=== PATIENT | male | born 1940 | race Caucasian/White ===

== ENCOUNTER 2024-11-18 10:48 | Emergency (ER) | payer BC, MEDICARE, SELFPAY ==
[2024-11-18 11:06] VITALS: BP 162/76
[2024-11-18 11:36] LABS: Hematocrit 44.8 % (39.0-52.0); Hemoglobin 15.1 g/dL (13.0-18.0); Mean Corp Hgb Conc. 33.7 g/dL (33.0-37.0); Mean Corpuscular Volume 93.7 fL (80.0-94.0); Nucleated Red Blood Cells % 0 % (-); Platelet Count 328 10^3/uL (130-400); Red Cell Dist. Width 14.6 % (11.5-14.5)
[2024-11-18 11:53] LABS: ALT (SGPT) 21 U/L (0-50); AST (SGOT) 27 U/L (17-59); Albumin 5.1 g/dl (3.5-5.0); Alkaline Phosphatase 36 U/L (38-126); Blood Urea Nitrogen 38 mg/dl (9-20); Calcium 10.1 mg/dl (8.4-10.2); Carbon Dioxide 20 mmol/L (22-30); Chloride 109 mmol/L (98-107); Glucose 125 mg/dl (70-99); Lipase 112 U/L (23-300); Potassium 4.6 mmol/L (3.5-5.1); Sodium 141 mmol/L (135-145); Total Protein 8.0 g/dl (6.3-8.2); eGFR > 60.00
[2024-11-18 12:15] LABS: Urine Character Clear (Clear)
[2024-11-18 12:34] LABS: Urine Red Blood Cell 0-2 /HPF (0-2); Urine Squamous Cell 0-2 /LPF (Few); Urine White Cell 0-2 /HPF (0-5)
--- NOTE | 2024-11-18 13:24 | ED.GENMED ---
History of Present Illness
General
Chief Complaint: Back Pain
Source: patient and spouse
Exam Limitations: none
Time Seen by Provider: 11/18/24 13:06
Nursing documentation reviewed up to this point in time: agreed with
History of Present Illness
History of Present Illness:
84-year-old male left flank pain onset Monday evening he was doing yard work Monday in the morning doing some heavy lifting pain was worse at night, used some Aleve without much relief, somewhat reminiscent of his prior pancreatitis, said no dysuria
no frequency no vomiting no abdominal pain no hematuria no fevers, pains worse when he moves better at rest has had back surgery previously had an epidural steroid injection a few months ago with some relief of his symptoms
Past History
Past History
ED Past Medical History: HTN and Hypercholesterolemia
ED Past Surgical History: Brain, Orthopedic (Back surgery) and Tonsilectomy
Social History
Tobacco: Non-smoker
Alcohol: None
Drug: None
Personal:
Living: with family
Employment: Retired
Review of Systems
Review of Systems
All Other Systems: Not applicable
Constitutional: Denies fever or fatigue
Cardiac: Reports no symptoms
ABD/GI: Denies abdominal pain or nausea
: Reports flank pain; Denies dysuria, frequency, incontinence or bleeding
Musculoskeletal: Reports back pain
Hematologic/Lymphatic: Reports no symptoms
Phy Exam
Physical Exam
Physical Exam:
Physical Exam
General: no apparent distress, not acutely ill
Neck: No jaundice
Heart: s1/s2 regular rate and rhythm, no murmur. equal radial pulses.
Lungs: no acute respiratory distress. clear bilaterally
Abdomen: Nontender
Neuro: alert and oriented. no focal neurological deficits negative straight leg raise bilaterally
Skin: no rash
Psychiatric: cooperative
Extremities: no edema.
Course
Orders/Labs/Results
Orders:
Orders
11/18/24 11:17
Complete Blood Count/With Diff Urgent
Comprehensive Metabolic Panel Urgent
Lipase Urgent
11/18/24 12:04
Urinalysis Reflex To Culture Urgent
Date Specimen was Collected: 11/18/24
Time Specimen was Collected: 11:09
Urine Microscopic Reflex Cult Urgent
11/18/24 13:21
Acetaminophen [Tylenol] 650 mg PO NOW STA
Prednisone [Deltasone] 40 mg PO NOW STA
11/18/24 13:52
Lumbar Spine, 2 or 3 View [CR Lumbar Spine 2 Or 3 Views] Urgent
Comment:
Reason For Exam: PAIN
Abnormal Lab Results
11/18/24 11/18/24
11:17 12:04
MCH 31.6 H pg
(27.0-31.0)
RDW 14.6 H %
(11.5-14.5)
Absolute Monos (auto) 0.9 H 10^3/uL
(0.1-0.6)
Monocytes % 11.9 H %
(1.7-9.3)
Chloride 109 H mmol/L
(98-107)
Carbon Dioxide 20 L mmol/L
(22-30)
BUN 38 H mg/dl
(9-20)
Glucose 125 H mg/dl
(70-99)
Alkaline Phosphatase 36 L U/L
(38-126)
Albumin 5.1 H g/dl
(3.5-5.0)
Urine Albumin (Reflex) 1+ A
(Neg - Trace)
11/18/24 11:17
11/18/24 11:17
Vital Signs
Initial and Last Documented VS:
Initial Vital Signs
Temp Pulse Resp BP Pulse Ox
99.3 F 64 16 162/76 96
11/18/24 11:06 11/18/24 11:06 11/18/24 11:06 11/18/24 11:06 11/18/24 11:06
Last Documented Vital Signs
Temp Pulse Resp BP Pulse Ox
99.3 F 64 16 162/76 96
11/18/24 11:06 11/18/24 11:06 11/18/24 11:06 11/18/24 11:06 11/18/24 13:26
MDM/Problems Addressed
Differential Diagnosis Includes:
Strain UTI stone doubt pancreatitis doubt AAA discitis epidural abscess
MDM/Problems Addressed:
Back pain
Chronic conditions affecting care:
Chronic back pain
Acute Exacerbation and/or Progression of Chronic Illness:
Chronic back pain pancreatitis
*Radiology
Radiology exam reviewed: preliminary read by ED provider (LAURIE scoliosis no fracture)
*Pulse Oximetry
SaO2: 96
Oxygen Mode of Delivery: Room air
Patient hypoxic: no
*Critical Care Note
Total Time (30-74mins, 75-104mins- exclusive of procedures): Not Applicable
Update Note
Update Note:
1:30 PM update symptoms worse with movement started after doing yard work normal lipase, urine noted
Patient hesitant to take any narcotics, will give him a short course of steroids consider muscle relaxants
ED Attending Note
-
Portions of this chart may have been created with voice recognition software.� Occasional wrong word or��sound alike� substitutions may have occurred due to the inherent limitations of voice recognition software.
Discharge Plan
Departure
Patient Disposition: Home (Routine Discharge)
Date of Disposition: 11/18/24
Time of Disposition: 13:29
Patient with high blood pressure during this ER visit?: No
Condition: Good
Discharge Problem:
Back pain, Muscle strain
Instructions: Low Back Pain (DC), Radiculopathy (DC)
Prescriptions:
New
cyclobenzaprine 5 mg tablet
5 mg PO HS PRN (Reason: muscle spasm) Qty: 14 0RF
methylprednisolone [Medrol (Sadi)] 4 mg tablets,dose pack
See Rx Instructions .ROUTE .COMPLEX Qty: 21 0RF
Rx Instructions:
for 6 days
No Action
losartan 50 MG tablet
100 mg PO DAILY
fenofibrate micronized 130 MG capsule
134 mg PO DAILY
brimonidine-timolol [Combigan] 1 DROP drops
1 drp LEFT EYE BID
bimatoprost [Lumigan] 1 DROP drops
1 drp BOTH EYES QPM
hydrochlorothiazide 25 MG tablet
25 mg PO DAILY
fluticasone propionate 1 SPRAY spray,suspension
1 spray intranasal DAILYPRN PRN (Reason: congestion)
cholecalciferol (vitamin D3) 2,000 UNITS tablet
2,000 unit PO DAILY
multivitamin with folic acid [Tab-A-Prabhjot] 1 TABLET tablet
1 tab PO DAILY
acetaminophen 325 MG tablet
650 mg PO Q4HPRN PRN (Reason: mild pain)
methylprednisolone [Medrol (Sadi)] 4 MG tablets,dose pack
4 tab PO . DIRECT Qty: 1 0RF
Referrals:
Vivek Ware MD [Family Provider, Family Practice] - Follow up in 2-3 days
Activity Restrictions/Additional Instructions:
Medrol Dosepak as prescribed--- start tomorrow take with food in your stomach
Tylenol every 4-6 hours as needed for pain
Interventions
Interventions:
*Risk Screen - Suicide Last Done: 11/18/24 13:45
*General Assessment Last Done: 11/18/24 13:45
*Neglect/Abuse Screening Last Done: 11/18/24 13:49
*ED- Fall Risk Assessment Last Done: 11/18/24 13:45
*ED COVID-19 Vaccine History Last Done: 11/18/24 13:45
Discharge Date and Time
Print Language: MACEDONIAN
[2024-11-18] MEDS: TYLENOL 650 MG PO (13:40)
[2024-11-18] MEDS: DELTASONE 40 MG PO (13:42)
== END 2024-11-18 15:25 | disposition home or self-care (01) ==
LOC: EMR 10:48
PROVIDERS: Emergency Medicine; EMERGENCY PHYSICIAN Emergency Medicine; FAMILY PHYSICIAN Family Medicine
DX: S39.012A Strain of muscle, fascia and tendon of lower back, initial encounter (principal); X50.0XXA Overexertion from strenuous movement or load, initial encounter; Y93.H2 Activity, gardening and landscaping; Y92.007 Garden or yard of unspecified non-institutional (private) residence as the place of occurrence of the external cause; I10 Essential (primary) hypertension; E78.00 Pure hypercholesterolemia, unspecified; M54.9 Dorsalgia, unspecified; G89.29 Other chronic pain
CPT/HCPCS: 99284; 72100; 80053; 81003; 81015; 83690; 85025